=== PATIENT | female | born 1995 | race American Indian/Alaskan Native ===

== ENCOUNTER 2018-04-16 19:39 | Emergency (ER) | payer MEDICAID, OTHER ==
[2018-04-16] MEDS ORDERED: NACL 0.9% 1000 ML 1,000 ML IV ONE (20:01)
--- NOTE | 2018-04-16 20:05 | Emergency Department Report ---
ED Female HPI - General Chief complaint: Vaginal Bleeding Stated complaint: POSS MISCARRIAGE Time Seen by Provider: 04/16/18 20:01 Source: patient, EMS Mode of arrival: Stretcher Limitations: No Limitations - History of Present Illness Initial comments: Patient is a 23-year-old female that presents to emergency room with complaints of vaginal bleeding and lower abdominal cramping. Patient states that she is but does not know how far along she is. Patient states her last menstrual period was 02/17/2018. Patient denies fever chills. Patient denies chest pain. Patient states her abdominal cramping is a 4 out of 10 and is improving. Patient denies vaginal discharge. Patient denies heavy bleeding. Patient denies passing of clots. Patient denies nausea vomiting. Patient denies dysuria. MD Complaint: vaginal bleeding -: Sudden Location: suprapubic Radiation: non-radiating Severity: mild Severity scale (0 -10): 3 Quality: cramping Consistency: constant Worsens with: movement Are you Now?: Yes Last Menstrual Period: 02/17/18 EDC: 11/24/18 Associated Symptoms: vaginal bleeding, abdominal pain. denies: vaginal discharge, nausea/vomiting, fever/chills, headaches, loss of appetite, dysuria, hematuria, rash, seizure, shortness of breath, syncope, weakness - Related Data Sexually active: Yes Previous Rx's Medication Instructions Recorded Last Taken Type Ondansetron [Zofran Odt] 4 mg PO Q8HR PRN #12 tab.rapdis 04/16/18 Unknown Rx Allergies Allergy/AdvReac Type Severity Reaction Status Date / Time No Known Allergies Allergy Verified 04/14/13 19:15 ED Review of Systems ROS: Stated complaint: POSS MISCARRIAGE Other details as noted in HPI Constitutional: denies: chills, fever Eyes: denies: eye pain, eye discharge, vision change ENT: denies: ear pain, throat pain Respiratory: denies: cough, shortness of breath, wheezing Cardiovascular: denies: chest pain, palpitations Endocrine: no symptoms reported Gastrointestinal: abdominal pain. denies: nausea, diarrhea Genitourinary: denies: urgency, dysuria, discharge Musculoskeletal: denies: back pain, joint swelling, arthralgia Skin: denies: rash, lesions Neurological: denies: headache, weakness, paresthesias Psychiatric: denies: anxiety, depression Hematological/Lymphatic: denies: easy bleeding, easy bruising ED Past Medical Hx - Past Medical History Previous Medical History?: No - Surgical History Past Surgical History?: No - Family History Family history: no significant - Social History Smoking Status: Never Smoker Substance Use Type: None - Medications Home Medications: Home Medications Medication Instructions Recorded Confirmed Last Taken Type Ondansetron [Zofran Odt] 4 mg PO Q8HR PRN #12 tab.rapdis 04/16/18 Unknown Rx ED Physical Exam - General Limitations: No Limitations General appearance: alert, in no apparent distress - Head Head exam: Present: atraumatic, normocephalic - Eye Eye exam: Present: normal appearance - ENT ENT exam: Present: mucous membranes moist - Neck Neck exam: Present: normal inspection - Respiratory Respiratory exam: Present: normal lung sounds bilaterally. Absent: respiratory distress - Cardiovascular Cardiovascular Exam: Present: regular rate, normal rhythm. Absent: systolic murmur, diastolic murmur, rubs, gallop - GI/Abdominal GI/Abdominal exam: Present: soft, tenderness (mild suprapubic tenderness), normal bowel sounds. Absent: distended, guarding, rebound - Rectal Rectal exam: Present: deferred - Extremities Exam Extremities exam: Present: normal inspection - Back Exam Back exam: Present: normal inspection - Neurological Exam Neurological exam: Present: alert, oriented X3 - Psychiatric Psychiatric exam: Present: normal affect, normal mood - Skin Skin exam: Present: warm, dry, intact, normal color. Absent: rash ED Course Vital Signs 04/16/18 04/16/18 04/16/18 19:44 20:09 20:10 Temperature 98.5 F Pulse Rate 86 74 Respiratory 14 16 Rate Blood Pressure 110/62 Blood Pressure 110/62 [Right] O2 Sat by Pulse 100 99 100 Oximetry 04/16/18 04/16/18 21:00 22:00 Temperature Pulse Rate Respiratory Rate Blood Pressure 113/67 107/64 Blood Pressure [Right] O2 Sat by Pulse 100 100 Oximetry - Reevaluation(s) Reevaluation #1: Patient states all pain has resolved. Costal results and ultrasound results with patient. Ultrasound shows a single IUP. Patient states vaginal bleeding has stopped. Discussed spotting in . Patient given discharge instructions. Patient instructed to follow up with [facility] as soon as possible. Patient was understanding of all discharge instructions. Patient states that times she has nausea even though she is not having nausea now. Patient will be given a Zofran prescription. Patient also instructed to take a vitamin. 04/16/18 22:37 She tolerated by mouth intake. 04/16/18 22:46 ED Medical Decision Making - Lab Data Result diagrams: 04/16/18 20:24 04/16/18 20:24 - Radiology Data Radiology results: report reviewed FINAL REPORT EXAM: US OB lt; = 14 WEEKS FETUS HISTORY: Vaginal bleeding COMPARISON: None available. TECHNIQUE: Several real-time grayscale and color Doppler images were obtained. Transabdominal and transvaginal exam. FINDINGS: Single live IUP. Estimated gestational age 7 weeks 2 days. Estimated delivery date December 01, 2018. heart rate 149 beats per minute. Yolk sac is present. Cervix is closed. The uterus measures 10.0 x 7.8 x 7.0 centimeters. The right ovary measures 3.5 x 1.9 x 1.9 centimeters. Left ovary measures 2.8 x 1.5 x 1.8 centimeters. Small follicles are present. There is vascular flow to the bilateral ovaries. No adnexal masses are demonstrated. IMPRESSION: Single live IUP. Estimated gestational age 7 weeks 2 days. Estimated delivery date December 01, 2018. - Medical Decision Making Patient is a 23-year-old female that presents emergency room with complaints of vaginal bleeding and lower abdominal cramping. Patient and ultrasound done which shows stable IUP. Labs unremarkable. Patient given discharge instructions. Patient is stable for discharge. - Differential Diagnosis threatened miscarriage. Abdominal pain, cramps and vaginal bleeding Critical care attestation.: If time is entered above; I have spent that time in minutes in the direct care of this critically ill patient, excluding procedure time. ED Disposition Clinical Impression: Abdominal cramping, Vaginal bleeding, Vaginal bleeding before 22 weeks gestation Qualifiers: Weeks of gestation: less than 8 weeks Qualified Code(s): Z3A.01 - Less than 8 weeks gestation of Disposition: DC-01 TO HOME OR SELFCARE Is pt being admited?: No Does the pt Need Aspirin: No Condition: Stable Instructions: Threatened Miscarriage (ED), (ED), Acute Nausea and Vomiting (ED) Additional Instructions: Patient follow up with [facility] in 2-3 days. Patient to return to the condition worsens. Patient to follow up primary care in 2-3 days. Patient to start a vitamin. Patient's take Zofran when necessary. Patient states Tylenol when necessary for pain. Patient to increase water. Patient to avoid anything per vagina. Prescriptions: Ondansetron [Zofran Odt] 4 mg PO Q8HR PRN #12 tab.rapdis PRN Reason: Nausea And Vomiting Referrals: ADRIAN JEREZ MD [Primary Care Provider] - 2-3 Days EMMA SHAFER MD [Staff Physician] - 2-3 Days Time of Disposition: 22:42
[2018-04-16 20:58] LABS: Basophils % (Auto) 0.3 % (0.0-1.8); Eosinophils % (Auto) 0.2 % (0.0-4.3); Hematocrit 41.4 % (30.3-42.9); Lymphocytes # (Auto) 1.6 K/mm3 (1.2-5.4); Lymphocytes % (Auto) 16.7 % (13.4-35.0); Mean Corpuscular HGB Conc 34 % (30-34); Mean Corpuscular Volume 88 fl (79-97); Monocytes # (Auto) 1.3 K/mm3 (0.0-0.8); Monocytes % (Auto) 13.4 % (0.0-7.3); Platelet Count 263 K/mm3 (140-440); Red Blood Count 4.71 M/mm3 (3.65-5.03); Red Cell Distribution Width 13.3 % (13.2-15.2)
[2018-04-16 21:22] LABS: BUN/Creatinine Ratio 11; Blood Urea Nitrogen 8 mg/dL (7-17); Calcium 9.4 mg/dL (8.4-10.2); Hemolysis Index 4
--- NOTE | 2018-04-16 22:13 | Ultrasound Report ---
FINAL REPORT EXAM: US OB TRANSVAGINAL HISTORY: vag bleed COMPARISON: None available. TECHNIQUE: Several real-time grayscale and color Doppler images were obtained. Transabdominal and tr ansvaginal exam. FINDINGS: Single live IUP. Estimated gestational age 7 weeks 2 days. Estimated delivery date December 01, 2018 . heart rate 149 beats per minute. Yolk sac is present. Cervix is closed. The uterus measures 10.0 x 7.8 x 7.0 centimeters. The right ovary measures 3.5 x 1.9 x 1.9 centimeter s. Left ovary measures 2.8 x 1.5 x 1.8 centimeters. Small follicles are present. There is vascular fl ow to the bilateral ovaries. No adnexal masses are demonstrated. IMPRESSION: Single live IUP. Estimated gestational age 7 weeks 2 days. Estimated delivery date December 01, 2018 .
--- NOTE | 2018-04-16 22:14 | Ultrasound Report ---
FINAL REPORT EXAM: US OB <= 14 WEEKS FETUS HISTORY: Vaginal bleeding COMPARISON: None available. TECHNIQUE: Several real-time grayscale and color Doppler images were obtained. Transabdominal and tr ansvaginal exam. FINDINGS: Single live IUP. Estimated gestational age 7 weeks 2 days. Estimated delivery date December 01, 2018 . heart rate 149 beats per minute. Yolk sac is present. Cervix is closed. The uterus measures 10.0 x 7.8 x 7.0 centimeters. The right ovary measures 3.5 x 1.9 x 1.9 centimeter s. Left ovary measures 2.8 x 1.5 x 1.8 centimeters. Small follicles are present. There is vascular fl ow to the bilateral ovaries. No adnexal masses are demonstrated. IMPRESSION: Single live IUP. Estimated gestational age 7 weeks 2 days. Estimated delivery date December 01, 2018 .
[2018-04-17 14:40] VITALS: BP 109/63
== END 2018-04-16 23:23 | disposition home or self-care (01) ==
LOC: ED 19:39
DX: O20.9 Hemorrhage in early pregnancy, unspecified (principal); O26.891 Other specified pregnancy related conditions, first trimester; R10.2 Pelvic and perineal pain; Z3A.01 Less than 8 weeks gestation of pregnancy
CPT/HCPCS: 36415; 76801; 76817; 80048; 84702; 85025; 86850; 86900; 86901; 99284; J7030; 96360

== ENCOUNTER 2020-09-30 00:42 | Emergency (ER) | payer OTHER | END 2020-09-30 01:30 | disposition left against medical advice (07) | LOC: ED 00:42 | DX: Z00.8 Encounter for other general examination (principal); Z53.21 Procedure and treatment not carried out due to patient leaving prior to being seen by health care provider ==